=== PATIENT | female | born 1950 | race Caucasian/White ===

== ENCOUNTER 2017-06-26 09:01 | Day surgery (SDC) | payer MEDICARE, BC ==
[~2017-06-26 09:01] MED LIST: LIDOCAINE HCL 1% MPF 30 SOL ONE; PROPOFOL 500 MG/50 ML EMU IV ONE
[2017-06-26 11:11] VITALS: BP 148/86; PULSE 56; RESP 20; TEMP 97.6; O2SAT 100
== END 2017-06-26 11:30 | disposition home or self-care (01) | DRG 951 ==
LOC: SURG 09:01
PROVIDERS: ATTEND Surgery
DX: Z12.11 Encounter for screening for malignant neoplasm of colon (principal)
CPT/HCPCS: J2001; J2704